=== PATIENT | female | born 1995 | race Caucasian/White ===

== ENCOUNTER → 2017-08-07 21:03 | Outpatient (CLI) | payer BC, SELFPAY | PROVIDERS: Visit Provider Physician Assistant Surgical | DX: J02.9 Acute pharyngitis, unspecified (principal) | CPT/HCPCS: 87081 ==

== ENCOUNTER 2018-11-13 19:15 | Emergency (ER) | payer BC, SELFPAY ==
[2018-07-13 16:52] VITALS: BMI 23.7
[2018-11-13 19:15] VITALS: BP 107/62; PULSE 78; RESP 15; TEMP 36.8; BMI 24.7
--- NOTE | 2018-11-13 20:26 | CT_ITS ---
HISTORY: UMBILICAL PAIN WITH PREV REPAIR ADDITIONAL HISTORY: None provided. TECHNIQUE: CT images were obtained of the abdomen and pelvis with 100 ml of Isovue 300 IV contrast. Enteric contrast was given. A radiation dose optimization technique was used for this scan. Number of images including paperwork: [id number] COMPARISON: None FINDINGS: LOWER THORAX: No consolidation or pleural effusion. LIVER: No concerning focal lesion. GALLBLADDER: No radiopaque calculi. BILE DUCTS: No significant biliary dilatation. SPLEEN: Unremarkable. PANCREAS: Unremarkable. ADRENAL GLANDS: Unremarkable. KIDNEYS/URETERS: Unremarkable. BOWEL: No bowel obstruction. No significant bowel wall thickening. No localized inflammation. APPENDIX: Normal. FREE FLUID: No significant free fluid. FREE AIR: None. LYMPH NODES: No pathologic appearing adenopathy. PERITONEUM, RETROPERITONEUM AND MESENTERY: Otherwise unremarkable. VASCULATURE: Unremarkable as imaged. PELVIS: Unremarkable bladder. ABDOMINAL WALL: Unremarkable. OSSEOUS AND SOFT TISSUE STRUCTURES: No acute skeletal findings. CT/Abdomen/Pelvis WITH Contrast IMPRESSION: No acute abdominopelvic abnormality. Individualized dose optimization techniques were used for this CT. at 2229 Reported and signed by: Merline Ham MD Electronically Signed: Merline Ham MD at 22:29 EDT Tel , Service support ,
--- NOTE | 2018-11-13 20:26 | ED.VISSUMM ---
- ER Visit Summary Date of Service: 11/13/18 Chief Complaint: Abdominal pain History of Present Illness: The patient is a 22 F presenting with abdominal pain. This has been intermittent for the past 2 days. She has pain in the mid abdomen and right lower quadrant. She has a history of previous umbilical hernia repair 2015 in [place]. She has nausea with no vomiting. She has had mild constipation. She denies fever. Denies urinary complaints. She is unsure if she could be . Denies other complaints. Physical Examination: Vitals are stable. Patient is afebrile. Alert no acute distress. HEENT exam is unremarkable. Neck is supple. Lungs are clear and equal bilaterally. Heart is regular rate and rhythm. Abdomen is soft mild right lower quadrant tenderness with no rebound or guarding Extremities are unremarkable. Skin is warm and dry. No focal neurologic deficit. Remainder of exam is unremarkable. Emergency Department Course and Treatment: CBC, chemistries unremarkable. Urinalysis shows 0-5 white blood cells, 0 red cells, 5-[address] hCG negative. CT abdomen pelvis shows no acute abdominopelvic abnormality. On reevaluation, patient is resting comfortably. Advised to follow-up with Dr. Santa labor relations manager for no doc. Advised return to ED if worsening complaints. Disposition: Discharge home Impression: Abdominal pain This note was generated with [employer] dictation software. It may contain incorrect words, spelling, and punctuation that were not noted in review of the chart prior to signing ED Disposition - Plan for ED Patient: Instructions: ED Abdominal Pain Unkn Cause Referrals: Iglesia Santa III, MD [STAFF PHYSICIAN] -
[2018-11-13 20:48] LABS: Red Blood Cells-Urine 0 SEEN /hpf (0-5)
[2018-11-13 20:53] LABS: Absolute Lymphocyte Count 2.67 X10^3/ul (0.83-4.51); Absolute Neutrophil Count 4.2 X10^3/uL (2.0-7.7); Basophil# 0.04 X10^3/uL; Basophil% 0.5 % (0-1); Eosinophil# 0.14 X10^3/uL; Eosinophils% 1.7 % (0-5); Hematocrit 42.8 % (37-47); Hemoglobin 14.8 g/dl (12.0-15.0); Lymphocyte # 2.67 X10^3/ul (4.0); Lymphocyte % 32.4 % (19-41); Mean Corp Hgb Conc 34.6 g/gl (32-36); Mean Corpuscular Hgb 30.9 pg (27.0-32.0); Mean Corpuscular Volume 89.4 fL (81-99); Mean Platelet Vol. 9.3 fl (6.2-12.0); Monocyte# 1.15 X10^3/uL; Neutrophil # 4.22 X10^3/uL (2.7-7.7); Neutrophil % 51.3 % (47-70); Platelet Count 288 K/mm3 (150-450); RBC Distribution Width CV 12.4 % (11.6-14.6); RBC Distribution Width SD 39.9 fl (35.1-43.9); Red Blood Count 4.79 M/mm3 (4.2-5.4); White Blood Count 8.2 K/mm3 (4.4-11.0)
[2018-11-13 20:54] LABS: Color, Urine Yellow (Yellow); Glucose, Dipstick Normal (Normal); Ketone-Dipstick 5 mg/dl (Negative); Leukocyte Esterase-Dipstick 100 /ul (Negative); Nitrite-Dipstick Negative (Negative); Occult Blood-Urine 10 /ul (Negative); Protein-Dipstick 15 mg/dl (Negative); Specific Gravity, Urine 1.025 (1.002-1.030); Urine Bilirubin Dipstick Negative (Negative); Urine Clarity Clear (Clear); Urine Urobilinogen 1 mg/dl (Normal)
[2018-11-13 20:59] LABS: POSITIVE COUNT NO; POSITIVE DIFFERENTIAL NO; POSITIVE MORPHOLOGY NO
[2018-11-13 21:03] LABS: Squamous Epithelial Cells - UA 5-10 SEEN /hpf (5-10); White Blood Cells 0-5 SEEN /hpf (0-5)
[2018-11-13 21:04] LABS: Bacteria 1+ /hpf (None Seen); Calcium Oxalate Crystals Ur 3+ /hpf (<or=2+); Internal QC Validated? YES +Cl - CLEAR BKGD; Mucous, Urine 3+ /hpf (<or=2+); Pregnancy, Serum, hCG Quali. NEGATIVE Negative
[2018-11-13 21:05] LABS: Anion Gap 2 (5-15); BUN 13 mg/dL (7-18); Calcium,Total 9.4 mg/dL (8.5-10.1); Chloride 109 mmol/L (98-107); Creatinine, Serum 0.82 mg/dL (0.55-1.02); EST Glomerular Filtration Rate 91 mL/min (>60); Est Glom Filt Rate - Afr Amer 110 mL/min (>60); Estimated Creatinine Clearance 102.88 ml/min; Glucose 82 mg/dL (74-106); Potassium 3.5 mmol/L (3.5-5.1); Sodium Level 139 mmol/L (136-145)
[2018-11-13 22:27] VITALS: BP 113/59; PULSE 60; RESP 15; O2SAT 99
--- NOTE | 2018-11-13 23:14 | ED.DEP ---
ED Disposition - Plan for ED Patient: Instructions: ED Abdominal Pain Unkn Cause Referrals: Iglesia Santa III, MD [STAFF PHYSICIAN] -
[2018-11-13 23:41] VITALS: BP 101/59; PULSE 67; RESP 16; O2SAT 98
== END 2018-11-13 23:42 | disposition home or self-care (01) ==
PROVIDERS: Emergency Provider Emergency Medicine
DX: R10.31 Right lower quadrant pain (principal); Z72.0 Tobacco use
CPT/HCPCS: 74177; 80048; 81001; 84703; 85025; 99283; Q9967; A4216

== ENCOUNTER 2020-04-10 11:03 | Emergency (ER) | payer SELFPAY ==
[2019-06-19 17:02] VITALS: BMI 24.7
[2020-04-10 11:04] VITALS: BP 118/72; PULSE 74; RESP 16; TEMP 36.5; O2SAT 98; BMI 27.3
[2020-04-10 11:48] VITALS: BP 122/69
--- NOTE | 2020-04-10 12:08 | US_ITS ---
STUDY: ABDOMINAL ULTRASOUND - RIGHT UPPER QUADRANT REASON FOR VISIT: Female, 24 years old RUQ PAIN and amp; NAUSEA x 1 WEEK, VOMITING TODAY TECHNIQUE: Ultrasound evaluation of the right upper quadrant was performed with real-time and static blake-scale imaging. TECHNICAL QUALITY: Adequate. COMPARISON: None. FINDINGS: Liver: The liver measures 15.6 cm. There is normal echogenicity of the liver. The bile ducts are within normal limits. There is hepatic color flow. The direction of portal flow is hepatopetal. There is no demonstrated mass lesion. Gallbladder: Normal distended gallbladder. The gallbladder wall measures 2.8 mm. There is a negative sonographic Roblero''s sign. There is no pericholecystic fluid. There are no gallstones. Common Bile Duct (C.B.D.): The common bile duct measures 3.0 mm. Pancreas: Normal size of the head, body and tail of the pancreas. There is normal echogenicity of the pancreas. There is no demonstrated pancreatic mass or cyst. Right Kidney: Normal size of the right kidney. The right kidney measures 10.2 cm x 4.3 cm x 4.2 cm. Normal renal cortex. The right cortex measures 1.0 cm. There is no demonstrated renal mass or cyst. There is no right hydronephrosis. US/Gallbladder IMPRESSION: Normal right upper quadrant ultrasound examination. Electronically Signed: Elio Song, at 12:45 EST , Service support ,
[2020-04-10 12:23] LABS: Absolute Lymphocyte Count 1.17 X10^3/uL (0.83-4.51); Absolute Neutrophil Count 9.7 X10^3/uL (2.0-7.7); Basophil# 0.06 X10^3/uL; Basophil% 0.5 % (0-1); Eosinophil# 0.02 X10^3/uL; Eosinophils% 0.2 % (0-5); Hematocrit 45.7 % (37-47); Hemoglobin 15.7 g/dL (12.0-15.0); Lymphocyte # 1.17 X10^3/ul (4.0); Lymphocyte % 10.3 % (19-41); Mean Corp Hgb Conc 34.4 g/dL (32-36); Mean Corpuscular Volume 93.1 fL (81-99); Mean Platelet Vol. 9.5 fl (6.2-12.0); Monocyte# 0.46 X10^3/uL; NRBC Flagged by Analyzer 0 % (0-5); Neutrophil # 9.66 X10^3/uL (2.7-7.7); Neutrophil % 84.6 % (47-70); Platelet Count 365 K/mm3 (150-450); RBC Distribution Width SD 37.3 fl (35.1-43.9); Red Blood Count 4.91 M/mm3 (4.2-5.4); White Blood Count 11.4 K/mm3 (4.4-11.0)
[2020-04-10 12:35] LABS: ALB/GLOB Ratio 1.2 RATIO (0.9-2.4); AST(SGOT) 13 U/L (15-37); Alanine Aminotransfer ALT/SGPT 20 U/L (13-56); Albumin, Serum 4.3 g/dL (3.2-5.0); Alkaline Phosphatase 68 U/L (45-117); Anion Gap 4 (5-15); BUN 15 mg/dL (7-18); BUN/Creat Ratio 21.2 RATIO (10-20); Calcium,Total 9.3 mg/dL (8.5-10.1); Chloride 108 mmol/L (98-107); Creatinine, Serum 0.71 mg/dL (0.55-1.02); EST Glomerular Filtration Rate 106 mL/min (>60); Est Glom Filt Rate - Afr Amer 128 mL/min (>60); Estimated Creatinine Clearance 112.41 ml/min; Globulin 3.6 g/dL (2.2-4.2); Glucose 93 mg/dL (74-106); Lipase 84 U/L (73-393); Potassium 3.6 mmol/L (3.5-5.1); Protein, Total 7.9 g/dL (6.4-8.2); Sodium Level 140 mmol/L (136-145)
[2020-04-10 12:37] LABS: Internal QC Validated? YES +Cl - CLEAR BKGD; Pregnancy, Serum, hCG Quali. NEGATIVE Negative
--- NOTE | 2020-04-10 13:17 | ED.DCSUM_ITS ---
History of Present Illness Chief Complaint: Abd Pain Narrative: Patient presenting for evaluation secondary to abdominal pain nausea vomiting. Patient states that over the course of about the last week she has been dealing with persistent nausea but has not actually vomited. Patient states that within the last 24 hours however she developed vomiting. This is nonbloody and nonbilious and nonfeculent. Is not been associated with diarrhea. Stop and associate with any urinary symptoms. Patient does have a past history of a hernia repair, no other history of abdominal surgeries. She denies any sick contacts. No exacerbating relieving factors. Review of systems otherwise negative. Past Medical History - Allergies and Home Meds Allergies/Adverse Reactions: Allergies No Known Allergies Allergy (Verified 04/10/20 11:04) Primary Care Physician: Care Physician,No Primary [Primary Care Provider] - Prior records reviewed: Yes Past Medical History: None Surgical History: herniorrhaphy Lives: With Family Smoking Status: Current some day smoker Alcohol: None Drugs: None Review of Systems All systems negative except as indicated General: Denies: Chills, Fever, Sweats Eyes: Denies: Visual changes - bilaterally, Diplopia ENT: Denies: Rhinorrhea, Sore throat Cardiovascular: Denies: Chest pain, Palpitations Respiratory: Denies: Dyspnea, Cough, Dyspnea on exertion Gastrointestinal: Reports: Abdominal pain, Nausea, Vomiting Genitourinary: Denies: Dysuria, Hematuria, Frequency Musculoskeletal: Denies: Back pain, Extremity Pain Skin: Denies: Rash, Wounds Neurological: Denies: Headache, Weakness, Numbness Physical Exam Vital Signs/Narrative: Vital Signs Temp Pulse Resp BP Pulse Ox 04/10/20 11:48 122/69 H 04/10/20 11:04 97.7 F L 74 16 118/72 98 Inital Vital Signs reviewed: Yes General: Well nourished, Well developed, No Acute Distress, - - Well-appearing age-appropriate female laying comfortably in the bed no acute distress Head: Normocephalic, Atraumatic Eyes: Perrl, EOMI ENT: Moist mucous membranes, No rhinorrhea Neck: Supple, Nontender Cardiovascular: Regular rate, Regular rhythm, No murmurs Respiratory: No distress, CTA bilaterally, Chest nontender Abdomen: Soft, Nondistended, Normal bowel sounds, Tender - Minimal epigastric and right upper quadrant tenderness negative Roblero sign no guarding or rebound Back: Nontender, Normal Inspection Extremities: Nontender, No edema Skin: Normal color, No rash Neurological: Alert, Oriented x3, Cranial nerves II-XII grossly intact, Normal Strength, Normal Sensation Psychological: Normal affect, Normal Mood Diagnostic/Tx/Re-eval Clinical Impression(s) from Imaging Studies Gallbladder Ultrasound 04/10/20 12:08 IMPRESSION: Normal right upper quadrant ultrasound examination. Electronically Signed: Elio Song, at 12:45 EST , Service support , Laboratory Data 04/10/20 04/10/20 04/10/20 11:45 11:45 11:45 WBC 11.4 H RBC 4.91 Hgb 15.7 H Hct 45.7 MCV 93.1 MCH 32.0 MCHC 34.4 RDW Std Deviation 37.3 RDW Coeff of Carroll 11.0 L Plt Count 365 MPV 9.5 Immature Gran % (Auto) 0.400 Neut % (Auto) 84.6 H Lymph % (Auto) 10.3 L Ell[place] % (Auto) 4.0 Eos % (Auto) 0.2 Baso % (Auto) 0.5 Absolute Neuts (auto) 9.7 H Absolute Lymphs (auto) 1.17 Nucleated RBC % 0 Sodium 140 Potassium 3.6 Chloride 108 H Carbon Dioxide 28.0 Anion Gap 4 L BUN 15 Creatinine 0.71 Estim Creat Clear Calc 112.41 Est GFR (MDRD) Af Amer 128 Est GFR (MDRD) Non-Af 106 BUN/Creatinine Ratio 21.2 H Glucose 93 Calcium 9.3 Total Bilirubin 0.60 AST 13 L ALT 20 Alkaline Phosphatase 68 Total Protein 7.9 Albumin 4.3 Globulin 3.6 Albumin/Globulin Ratio 1.2 Lipase 84 Serum , Qual NEGATIVE - Medical Decision Making Patient presented secondary to abdominal pain nausea vomiting. Patient was given IV fluids and Zofran. Laboratory work-up is unremarkable other than mild leukocytosis of 11, no evidence of pancreatitis or electrolyte derangement or elevation of liver enzymes. Right upper quadrant ultrasound was performed and per radiology is negative for acute disease. At this point the patient likely has a GI illness, she does not have other signs of toxicity and no evidence of surgical abdominal pathology. I believe that she is stable and appropriate for discharge. She will be sent home with a course of Zofran. She was recommended conservative management measures and the patient was discharged in stable condition. ED Disposition - Plan for ED Patient: Disposition: Home or Assisted Living Diagnosis: Abdominal pain, Nausea and vomiting Instructions: ED Abdominal Pain Unkn Cause Fem, ED Vomiting and Diarrhea Nonspecific Adult Prescriptions: Ondansetron [Zofran Odt] 4 mg PO Q8H PRN PRN #10 tab PRN Reason: Nausea Prescription Printed Referrals: Sindy Gaona [NON-STAFF] - 1 Week if not improving
--- NOTE | 2020-04-10 13:30 | CM.ED ---
Social Work Consult: No PCP Informant: Self-Referral Met with patient in room. Introduced self and psychosocial rehabilitation counselor role. Patient agreeable to speak with this psychosocial rehabilitation counselor. This psychosocial rehabilitation counselor broached topic of PCP. Patient confirms to not have a PCP. Patient confirms to have [employer] as insurance. Patient reports plan to move to [place], [place] but still continue to work in [place], [place]. Patient open to this psychosocial rehabilitation counselor providing patient with list of local PCP's. This psychosocial rehabilitation counselor exploring any further needs for patient. Patient reports to have housing and transportation. Patient denies community concerns or mental health needs. Patient pleasant and engaged with this psychosocial rehabilitation counselor. Lourdes Hadley MSW, PRISCILAS
[2020-04-10] MEDS: 0.9% Normal Saline 1,000 ML 1000 ML IV (13:40)
[2020-04-10] MEDS: Ondansetron 4 MG/2 ML Vial IV (13:40)
[2020-04-10 15:01] VITALS: BP 109/46; PULSE 78; RESP 15; O2SAT 99
== END 2020-04-10 15:02 | disposition home or self-care (01) ==
PROVIDERS: Emergency Provider Emergency Medicine
DX: R10.13 Epigastric pain (principal); R10.11 Right upper quadrant pain; R11.2 Nausea with vomiting, unspecified
CPT/HCPCS: 76705; 80053; 83690; 84703; 85025; 96361; 96374; 99284; J7030; A4216; J2405

== ENCOUNTER 2021-12-12 19:51 | Emergency (ER) | payer BC, SELFPAY ==
[2021-12-12 19:52] VITALS: BP 131/64; PULSE 86; RESP 16; TEMP 36.9; O2SAT 100; BMI 27.8
--- NOTE | 2021-12-12 20:17 | EDS_ITS ---
HPI HPI - GI History of Present Illness Chief Complaint: Abd Pain Narrative Narrative: 25-year-old female G1, presenting at 16 weeks of with right- sided abdominal pain. She states it hurts in the right lower quadrant. Patient states that she has had some nausea during but this has not changed. She notes the pain started abruptly about 3 days ago. She states it is sharp in nature and a little bit achy. The first day it was more persistent and second day it became intermittent. Today it has been a little bit more persistent. She has not taken any Tylenol. Patient denies constipation or diarrhea. She denies urinary complaints. She not had any vaginal bleeding or loss of fluid vaginally. She states she had a confirmed intrauterine by Dr. Malik. She states she has had blood work done noted that she is Rh-. She does not know what her hCG levels were. PFSH [facility] Medical History Cellulitis of both lower extremities Migraines Allergy/AdvReac Type Severity Reaction Status Date / Time No Known Allergies Allergy Verified 12/12/21 19:54 Family History Other Diabetes Heart disease Surgical History History of hernia repair Social History Smoking Status: Current some day smoker tobacco type: cigarettes alcohol intake: current alcohol intake frequency: holidays/special occasions only ROS ROS ED Constitutional Constitutional ED: Denies chills or fever(s) ENT ENT ED: Denies rhinorrhea or sore throat Cardiovascular Cardiovascular: Denies chest pain or palpitations Respiratory/Chest Respiratory/Chest: Denies cough or dyspnea Gastrointestinal Gastrointestinal: Reports abdominal pain and nausea; Denies constipation, diarrhea or vomiting Genitourinary Genitourinary ED: Denies dysuria or hematuria Musculoskeletal Musculoskeletal: Denies arthralgias or back pain Integumentary Denies abscess or Abrasions Neurologic Neurologic: Denies headache(s) Psychiatric Psychiatric: Denies anxiety or depression Endocrine Endocrinology: Denies polydipsia or polyphagia EXAM Physical Exam Const Vital Signs: 12/12/21 19:52 Temperature 98.5 F Temperature Source Temporal Pulse Rate 86 Respiratory Rate 16 Blood Pressure 131/64 H Blood Pressure Mean 86 Pulse Ox 100 Oxygen Delivery Method Room Air Positive well nourished and well developed General Appearance ED: well developed and NAD; Negative for pallor HEENT Reports moist mucous membranes normocephalic and atraumatic Eyes PERRL and EOMs intact bilaterally Resp normal respiratory effort and clear to auscultation bilaterally Cardio regular rate and regular rhythm GI Palpation: tender RLQ Back/Spine no CVA tenderness Neuro CN's II-XII intact bilaterally, moves all extremities and no sensory deficits noted Sensorium / Orientation: alert Psych mental status grossly normal and thought process normal Skin General Skin Exam: Negative for jaundice or pallor MDM MDM MDM Narrative Medical decision making narrative: Patient seen and evaluated for right lower quadrant pain. Does not appear to be McBurney's point tenderness and is more pelvic. No CVA tenderness. Blood work is obtained and she has a slight white count of 11.9 however her last blood work showed a white blood cell count of 11.5 and this is not significantly elevated after 3 days of pain. Renal function is normal. Potassium slightly low at 3.4. LFTs within normal limits. hCG is 19,266. Urinalysis is negative for infection. Obstetric ultrasound is ordered and shows no acute abnormalities and shows normal heart tones. There is no noted abnormalities in the right lower quadrant. Patient was given Tylenol for pain. She refused anything for nausea. I do not feel she has appendicitis at this point but I did enrollment counselor her on return precautions. She should follow-up with her senior contracts manager otherwise. Patient discharged in stable condition. Impression: 1. Abdominal pain in Lab Data Labs: Laboratory Results - last 24 hr 12/12/21 12/12/21 12/12/21 20:05 20:05 20:05 WBC 11.9 H RBC 4.04 L Hgb 12.6 Hct 35.7 L MCV 88.4 MCH 31.2 MCHC 35.3 RDW Std Deviation 37.5 RDW Coeff of Carroll 11.7 Plt Count 269 MPV 9.5 Immature Gran % (Auto) 0.400 Neut % (Auto) 67.3 Lymph % (Auto) 22.3 Lucas % (Auto) 8.4 Eos % (Auto) 1.2 Baso % (Auto) 0.4 Absolute Neuts (auto) 8.0 H Absolute Lymphs (auto) 2.66 Nucleated RBC % 0 Sodium 138 Potassium 3.4 L Chloride 106 Carbon Dioxide 26.0 Anion Gap 6 BUN 10 Creatinine 0.46 L Estim Creat Clear Calc 178.64 Est GFR (MDRD) Af Amer 211 Est GFR (MDRD) Non-Af 174 BUN/Creatinine Ratio 22.0 H Glucose 101 Calcium 8.9 Total Bilirubin 0.20 AST 11 L ALT 19 Alkaline Phosphatase 45 Total Protein 6.6 Albumin 3.4 Globulin 3.2 Albumin/Globulin Ratio 1.1 HCG, Quant 11111 H Urine Color Urine Clarity Urine pH Ur Specific Mcneil Urine Protein Urine Glucose (UA) Urine Ketones Urine Occult Blood Urine Nitrite Urine Bilirubin Urine Urobilinogen Ur Leukocyte Esterase Urine RBC Urine WBC Ur Squamous Epith Cells Urine Bacteria Urine Mucus 12/12/21 20:05 WBC RBC Hgb Hct MCV MCH MCHC RDW Std Deviation RDW Coeff of Carroll Plt Count MPV Immature Gran % (Auto) Neut % (Auto) Lymph % (Auto) Lucas % (Auto) Eos % (Auto) Baso % (Auto) Absolute Neuts (auto) Absolute Lymphs (auto) Nucleated RBC % Sodium Potassium Chloride Carbon Dioxide Anion Gap BUN Creatinine Estim Creat Clear Calc Est GFR (MDRD) Af Amer Est GFR (MDRD) Non-Af BUN/Creatinine Ratio Glucose Calcium Total Bilirubin AST ALT Alkaline Phosphatase Total Protein Albumin Globulin Albumin/Globulin Ratio HCG, Quant Urine Color Yellow Urine Clarity Sl. Cloudy Urine pH 7.0 Ur Specific Mcneil 1.010 Urine Protein Negative Urine Glucose (UA) Normal Urine Ketones Negative Urine Occult Blood Negative Urine Nitrite Negative Urine Bilirubin Negative Urine Urobilinogen Normal Ur Leukocyte Esterase Negative Urine RBC 0 SEEN Urine WBC 0 SEEN Ur Squamous Epith Cells 0 SEEN Urine Bacteria 0 SEEN Urine Mucus 0 SEEN Radiography Diagnostic Testing: Clinical Impression(s) from Imaging Studies Obstetrics Ultrasound 12/12/21 20:17 IMPRESSION: Single live early IUP as above. No concerning findings in the region of the right lower quadrant. Electronically Signed: Chadwick Coulter DO at 21:52 EDT , Discharge Plan Triage Chief Complaint: Abd Pain ED Provider: Mark Khan Dx/Rx/DC Orders Instructions: Comfort Tips During , ED Abdominal Pain, Early Primary Care Provider: Care Physician,No Primary Referrals: Care Physician,No Primary [Primary Care Provider] - Disposition Disposition: Home, Self Care
--- NOTE | 2021-12-12 20:17 | US_ITS ---
STUDY: SECOND AND THIRD TRIMESTER OBSTETRICAL ULTRASOUND - LIMITED REASON FOR EXAM: Female, 25 years old abdominal pain right lower quadrant pain x3 days LMP: Unknown. PRIOR ULTRASOUND: None. TECHNIQUE: Transabdominal TECHNICAL QUALITY: Adequate. FINDINGS: Cephalic presentation with heart rate of 152 bpm. PARTH is within normal limits. Cervix measures 3.5 cm and appears closed. Roughly 15 weeks 6 days gestational age. No definitive abnormalities in the right lower quadrant region. Normal appearance of the right ovary with normal blood flow, nonvisualized left ovary US/OB Limited (No Biometrics) IMPRESSION: Single live early IUP as above. No concerning findings in the region of the right lower quadrant. Electronically Signed: Chadwick Coulter DO at 21:52 EDT ,
[2021-12-12 20:20] LABS: Bacteria 0 SEEN /hpf (None Seen); Mucous, Urine 0 SEEN /hpf (<or=2+); Red Blood Cells-Urine 0 SEEN /hpf (0-5); Squamous Epithelial Cells - UA 0 SEEN /hpf (5-10); White Blood Cells 0 SEEN /hpf (0-5)
[2021-12-12 20:23] LABS: Absolute Lymphocyte Count 2.66 X10^3/uL (0.83-4.51); Basophil# 0.05 X10^3/uL; Basophil% 0.4 % (0-1); Color, Urine Yellow (Yellow); Eosinophil# 0.14 X10^3/uL; Eosinophils% 1.2 % (0-5); Glucose, Dipstick Normal (Normal); Hematocrit 35.7 % (37-47); Hemoglobin 12.6 g/dL (12.0-15.0); Ketone-Dipstick Negative (Negative); Leukocyte Esterase-Dipstick Negative /ul (Negative); Lymphocyte # 2.66 X10^3/ul (0.83-4.51); Lymphocyte % 22.3 % (19-41); Mean Corp Hgb Conc 35.3 g/dL (32-36); Mean Corpuscular Hgb 31.2 pg (27.0-32.0); Mean Corpuscular Volume 88.4 fL (81-99); Mean Platelet Vol. 9.5 fl (6.2-12.0); Monocyte% 8.4 % (0-10); NRBC Flagged by Analyzer 0 % (0-5); Neutrophil # 8.02 X10^3/uL (2.7-7.7); Neutrophil % 67.3 % (47-70); Nitrite-Dipstick Negative (Negative); Occult Blood-Urine Negative /ul (Negative); Platelet Count 269 K/mm3 (150-450); Protein-Dipstick Negative (Negative); RBC Distribution Width CV 11.7 % (11.6-14.6); RBC Distribution Width SD 37.5 fl (35.1-43.9); Red Blood Count 4.04 M/mm3 (4.2-5.4); Urine Bilirubin Dipstick Negative (Negative); Urine Clarity Sl. Cloudy (Clear); Urine Urobilinogen Normal (Normal); White Blood Count 11.9 K/mm3 (4.4-11.0)
[2021-12-12 20:39] LABS: ALB/GLOB Ratio 1.1 RATIO (0.9-2.4); AST(SGOT) 11 U/L (15-37); Alanine Aminotransfer ALT/SGPT 19 U/L (13-56); Albumin, Serum 3.4 g/dL (3.2-5.0); Alkaline Phosphatase 45 U/L (45-117); Anion Gap 6 (5-15); BUN 10 mg/dL (7-18); Calcium,Total 8.9 mg/dL (8.5-10.1); Chloride 106 mmol/L (98-107); Creatinine, Serum 0.46 mg/dL (0.55-1.02); EST Glomerular Filtration Rate 174 mL/min (>60); Est Glom Filt Rate - Afr Amer 211 mL/min (>60); Estimated Creatinine Clearance 178.64 ml/min; Globulin 3.2 g/dL (2.2-4.2); Glucose 101 mg/dL (74-106); Potassium 3.4 mmol/L (3.5-5.1); Protein, Total 6.6 g/dL (6.4-8.2); Sodium Level 138 mmol/L (136-145)
[2021-12-12] MEDS: Acetaminophen 500 MG Tablet 1000 MG PO (20:54)
[2021-12-12 20:55] LABS: hCG Titer Quant., Serum 19266 mIU/mL (1-3)
[2021-12-12 23:21] VITALS: BP 105/88; PULSE 72; RESP 16; O2SAT 98
== END 2021-12-12 23:22 | disposition home or self-care (01) ==
PROVIDERS: Emergency Provider Student in an Organized Health Care Education/Training Program; Visit Provider Student in an Organized Health Care Education/Training Program
DX: O99.891 Other specified diseases and conditions complicating pregnancy (principal); R10.31 Right lower quadrant pain; R11.0 Nausea; O99.332 Smoking (tobacco) complicating pregnancy, second trimester; F17.210 Nicotine dependence, cigarettes, uncomplicated; Z3A.16 16 weeks gestation of pregnancy
CPT/HCPCS: 76815; 80053; 81001; 84702; 85025; 99284; A4216

== ENCOUNTER 2022-05-24 13:40 | Inpatient (IN) | payer BC, SELFPAY ==
[2022-05-24] VITALS (37 sets, daily range): BP systolic 104–148; BP diastolic 50–70; PULSE 70–127; TEMP 36.4–37.9; O2SAT 98–100; BMI 30.8
[2022-05-24] MEDS: Lactated Ringers 1,000 ML 50 ML IV (14:00)
[2022-05-24 14:15] LABS: Absolute Lymphocyte Count 1.59 X10^3/uL (0.83-4.51); Absolute Neutrophil Count 13.5 X10^3/uL (2.0-7.7); Basophil# 0.05 X10^3/uL; Basophil% 0.3 % (0-1); Eosinophil# 0.07 X10^3/uL; Eosinophils% 0.4 % (0-5); Hematocrit 38.1 % (37-47); Hemoglobin 13.8 g/dL (12.0-15.0); Lymphocyte # 1.59 X10^3/ul (0.83-4.51); Lymphocyte % 9.6 % (19-41); Mean Corp Hgb Conc 36.2 g/dL (32-36); Mean Corpuscular Hgb 31.7 pg (27.0-32.0); Mean Corpuscular Volume 87.4 fL (81-99); Mean Platelet Vol. 9.4 fl (6.2-12.0); Monocyte% 7.3 % (0-10); NRBC Flagged by Analyzer 0 % (0-5); Neutrophil # 13.52 X10^3/uL (2.7-7.7); Neutrophil % 81.9 % (47-70); Platelet Count 241 K/mm3 (150-450); RBC Distribution Width CV 12.5 % (11.6-14.6); RBC Distribution Width SD 39.7 fl (35.1-43.9); Red Blood Count 4.36 M/mm3 (4.2-5.4); White Blood Count 16.5 K/mm3 (4.4-11.0)
[2022-05-24 14:45] LABS: Bedside Glucose 129 mg/dL (74-106)
[2022-05-24] MEDS: LACTATED RINGERS 500 ML 999 ML IV ×2 (16:17→20:49)
[2022-05-24 16:30] LABS: Bedside Glucose 68 mg/dL (74-106)
[2022-05-24] MEDS: fentaNYL-bupivacaine (epidural) 100 ML BAG EPIDURAL (16:55)
[2022-05-24 17:20] LABS: Rubella IgG Reactive (Nonreactive)
[2022-05-24] MEDS: Oxytocin 15 Units/NS 250ml 15 UNITS/250 ML IV.SOLN 2 UNITS IV (19:01)
--- NOTE | 2022-05-24 19:03 | PCM.HP.OB ---
HPI - General General Date of Admission: 05/24/22 Date of Service: 05/24/22 HPI Narrative AIDAN JAUREGUI, is a 26 F who presents at at 39w1d by first trimester US. Scheduled for elective IOL this evening but presented in early labor with contractions and increased pain. course complicated with GDMA1. Maternal Data Information Final CHERELLE: 05/30/22 Final CHERELLE Source: US <20 weeks Gestational age: 39w1d PFSH PFSH Medical History (Updated 05/24/22 @ 19:12 by Gaby Richards CNM) Acute pharyngitis, unspecified Cellulitis of both lower extremities Former smoker Gestational diabetes Migraines URI (upper respiratory infection) Home Medications [id number] 1 mg tablet 1 tab PO DAILY Check with primary doctor 05/24/22 [History Last Taken 05/23/22 20:00] Allergy/AdvReac Type Severity Reaction Status Date / Time No Known Allergies Allergy Verified 05/24/22 14:53 Family History Other Diabetes Heart disease Surgical History (Updated 05/24/22 @ 14:53 by Delia Brar) History of hernia repair Social History Smoking Status: Former smoker alcohol intake: current alcohol intake frequency: holidays/special occasions only History Elective abortions Hx Para 0 Spontaneous abortions Hx # Term Pregnancies Ectopic pregnancies Hx # Pregnancies Multiple births # of living children NST FHR Rate Baby A Baseline: 125 Variability:: Moderate Accelerations:: 15 x 15 Decelerations:: None FHR Category:: Category I Uterine Activity:: strong, every 2 min ROS Constitutional Constitutional: Reports systems reviewed and no addt'l complaints, except as documented; Denies headache(s) Eyes Eyes: Denies acute decrease in peripheral vision, blurry vision or change in vision ENT HEENT: Reports systems reviewed and no addt'l complaints, except as documented Cardiovascular Cardiovascular: Denies chest pain or dizziness Respiratory/Chest Respiratory/Chest: Denies cough, dyspnea, dyspnea on exertion, shortness of breath at rest or shortness of breath with exertion Gastrointestinal Gastrointestinal: Denies abdominal pain, diarrhea, nausea or vomiting Genitourinary Genitourinary: Reports movement; Denies abdominal discomfort Musculoskeletal Musculoskeletal: Denies limited range of motion Integumentary Integumentary: Reports systems reviewed and no addt'l complaints, except as documented Neurologic Neurologic: Reports systems reviewed and no addt'l complaints, except as documented Psychiatric Psychiatric: Reports systems reviewed and no addt'l complaints, except as documented Endocrine Endocrinology: Reports systems reviewed and no addt'l complaints, except as documented Hematologic/Lymphatic Hematologic/Lymphatic: Reports systems reviewed and no addt'l complaints, except as documented Allergic/Immunologic Allergic/Immunologic: Reports systems reviewed and no addt'l complaints, except as documented Vital Signs Vital Signs Vital Signs: 05/24/22 14:29 05/24/22 14:29 05/24/22 14:29 Temperature 99.3 F H Temperature Source Pulse Rate 87 Blood Pressure 110/56 L BP Systolic 110 BP Diastolic 56 Pulse Ox 05/24/22 16:26 05/24/22 16:26 05/24/22 16:25 Temperature 99.5 F H Temperature Source Pulse Rate 78 Blood Pressure 124/65 H BP Systolic 124 BP Diastolic 65 Pulse Ox 05/24/22 16:37 05/24/22 16:37 05/24/22 16:37 Temperature Temperature Source Pulse Rate 80 88 Blood Pressure 123/68 H BP Systolic 123 BP Diastolic 68 Pulse Ox 05/24/22 16:37 05/24/22 16:42 05/24/22 16:42 Temperature Temperature Source Pulse Rate 93 Blood Pressure 128/70 H BP Systolic 128 BP Diastolic 70 Pulse Ox 100 05/24/22 16:42 05/24/22 16:48 05/24/22 16:48 Temperature Temperature Source Pulse Rate 96 Blood Pressure 123/66 H BP Systolic 123 BP Diastolic 66 Pulse Ox 100 05/24/22 16:47 05/24/22 16:52 05/24/22 16:52 Temperature Temperature Source Pulse Rate 91 Blood Pressure BP Systolic BP Diastolic Pulse Ox 99 100 05/24/22 16:53 05/24/22 16:53 05/24/22 16:56 Temperature Temperature Source Pulse Rate 85 Blood Pressure 117/60 117/59 L BP Systolic 117 117 BP Diastolic 60 59 Pulse Ox 05/24/22 16:56 05/24/22 16:57 05/24/22 16:57 Temperature Temperature Source Pulse Rate 90 98 Blood Pressure BP Systolic BP Diastolic Pulse Ox 100 05/24/22 17:02 05/24/22 17:02 05/24/22 17:02 Temperature Temperature Source Pulse Rate 87 Blood Pressure 130/63 H BP Systolic 130 BP Diastolic 63 Pulse Ox 100 05/24/22 16:26 05/24/22 17:07 05/24/22 17:07 Temperature Temperature Source Temporal Pulse Rate 82 Blood Pressure BP Systolic BP Diastolic Pulse Ox 99 05/24/22 16:26 05/24/22 17:08 05/24/22 17:08 Temperature 99.6 F H Temperature Source Pulse Rate 85 Blood Pressure 125/65 H BP Systolic 125 BP Diastolic 65 Pulse Ox 05/24/22 17:11 05/24/22 17:11 05/24/22 17:12 Temperature Temperature Source Pulse Rate 81 Blood Pressure 126/63 H 120/59 L BP Systolic 126 120 BP Diastolic 63 59 Pulse Ox 05/24/22 17:12 05/24/22 17:43 05/24/22 17:43 Temperature Temperature Source Pulse Rate 82 72 Blood Pressure 114/56 L BP Systolic 114 BP Diastolic 56 Pulse Ox 05/24/22 17:43 05/24/22 17:43 05/24/22 17:43 Temperature 99.0 F Temperature Source Temporal Pulse Rate Blood Pressure BP Systolic BP Diastolic Pulse Ox 100 05/24/22 16:26 05/24/22 16:26 Temperature 99.4 F H Temperature Source Temporal Pulse Rate Blood Pressure BP Systolic BP Diastolic Pulse Ox Weight Weight: 196 lb 10.437 oz Body Mass Index (BMI) 30.8 Physical Exam Const alert and oriented x3 General Appearance: cooperative Orientation / Consciousness: awake, oriented to person, oriented to place and oriented to time Exam Limitations: no limitations HEENT normocephalic Head and Scalp: normal to inspection, normocephalic and atraumatic Face and Sinus: normal facial exam Eyes General Eye: normal appearance of both eyes Neck full ROM Chest Chest: symmetrical chest wall rise Resp normal respiratory effort and normal air movement Auscultation: clear to auscultation bilaterally Cardio regular rate, regular rhythm, S1 normal heart sound, S2 normal heart sound, no murmurs, no rub, no gallops and no clicks GI normal to inspection, nondistended, normoactive bowel sounds and non-tender appearance of the vagina normal Bladder / Kidney Exam: no CVA tenderness Manual OB Exam: estimated gestational size appropriate, presentation cephalic and dilated 4cm per nursing staff Back/Spine normal ROM Extremity normal to inspection and full ROM Skin no rashes or lesions noted Neuro oriented x3, CN's II-XII intact bilaterally and moves all extremities Sensorium / Orientation: awake, alert and oriented to person Motor Exam: clonus absent Deep Tendon Reflexes: Rt Patellar (L4): 2+ and Lt Patellar (L4): 2+ Labs Labs Labs: Blood Type A NEGATIVE Antibody Screen NEGATIVE Hct 38.1 % (37-47) Hgb 13.8 g/dL (12.0-15.0) Obstetrics US Rubella IgG Antibody Reactive (Nonreactive) RPR negative HBsAG negative HepC negative HIV negative GC/CT negative A negative Rubella Immune Assessment & Plan (1) GDM, class A1: (2) Active labor at term: (3) Rh negative state in antepartum period: (4) Positive GBS test: PLAN: Plan 1) Admit to labor and delivery 2) Routine labs 3) Epidural for pain management 4) Continuous EFM 5) Pitocin for labor augmentation per protocol 6) collaborative physician and notified of patient status 7) Positive GBS, PCN per protocol
[2022-05-24] MEDS: Penicillin G 3,000,000 Units 50 ML 100 UNITS IV (19:59)
[2022-05-24] MEDS: Lactated Ringers 1,000 ML 200 ML IV (20:00)
[2022-05-24 20:56] LABS: Bedside Glucose 97 mg/dL (74-106)
[2022-05-24 22:05] LABS: Bedside Glucose 94 mg/dL (74-106)
[2022-05-24 22:50] LABS: Bedside Glucose 84 mg/dL (74-106)
--- NOTE | 2022-05-24 22:50 | PLAC_PTH ---
PATIENT: AIDAN JAUREGUI LOC: [facility] U#:[id number] AGE/SX: 26/F ROOM: [facility]015 RE05/24/[address]: Gaby Richards CNM : 1995 BED: 1 DIS: 05/26/2022 SPEC #: [id number] RECD: 05/25/22 03:06 STATUS: EDWIN DANIEL #: [id number] OZ: 05/24/22 22:[address]: Gaby Richards DEPT: SURGICAL PATHOLOGY RECD BY: Lindsey Hicks ENTERED: 05/25/22 08:53 SP TYPE: PLACENTA OTHR DR: No Primary Care Phys Tissues: Placenta, NOS Procedures: Surgery Specimen Level V HEADER OPERATION: Vaginal delivery PRE-OP DIAGNOSIS: Possible abruption TISSUE SUBMITTED: Placenta MICROSCOPIC DIAGNOSIS Placenta: Placental disc - third trimester placenta (406 gm). - Focal acute vasculitis of subamniotic blood vessels. Membranes ? mild acute chorioamnionitis. Umbilical cord - three blood vessels and minimal early acute funisitis. SJ:ivan 05/26/2022 MICROSCOPIC DESCRIPTION Slides are reviewed. GROSS DESCRIPTION SPECIMEN: PLACENTA / CLINICAL INFORMATION: A. Weight: 3.255 kg B. Gestational Age: 39 weeks C. Sex: Female PLACENTAL WEIGHT (POST FIXATION): 406 gm PLACENTAL DIMENSIONS: 18 x 18 x 2.5 cm PLACENTAL SHAPE: Usual ovoid PLACENTAL WEIGHT FOR GESTATIONAL AGE: Within 10-99th percentile MEMBRANES - Present A. Insertion: Marginal B. Site of rupture from edge: 5 cm from edge of placental disc C. Color of membrane: Cazares-blake D. Abnormalities: None UMBILICAL CORD - Present A. Color: Cazares-blake B. Insertion: Near central insertion C. Length: 37 cm D. Diameter: 1.5 cm E. Number of vessels: Three F. Abnormalities: None PLACENTAL DISC - Present A. Color of surface: Cazares-blake B. surface abnormalities: None C. Maternal cotyledons: Intact with minimal tears D. Attached retro placental clot: No clot E. Cut surface: Dark red and spongy F. Lesions: None G. Separate clot: Absent SECTIONS SUBMITTED: 1. Umbilical cord ( end notched) 2. Umbilical cord, placental end 3. Membrane roll 4. Placental disc, and maternal surfaces 5. Placental disc, and maternal surfaces 6. Placental disc, and maternal surfaces AM:ivan 05/25/2022 TC:2 CPT: 33784
[2022-05-24] MEDS: Methylergonovine 0.2 MG/ML Ampul IM (23:02)
[2022-05-24] MEDS: Oxytocin 15 Units/NS 250ml 15 UNITS/250 ML IV.SOLN 83 UNITS IV (23:13)
--- NOTE | 2022-05-24 23:16 | EX.PCM.OBRPT ---
Assessment & Plan (1) Vaginal delivery: (2) Second degree perineal laceration: Maternal Data Information Final CHERELLE: 05/24/22 Gestational age: 39w1d Vaginal Delivery Maternal Presentation Maternal Presentation: Active Labor Operative Information Date of Procedure: 05/24/22 Pre-Operative Diagnosis: Active Labor Post-Operative Diagnosis: Surgery / Procedure Performed: Spontaneous Vaginal Delivery Type of Anesthesia: Epidural Estimated Blood Loss: 700 ml Time of Delivery: 22:50 Findings Description of Procedure: Progressed to complete with urge to push. Suspected placental abruption due to bleeding and clots with Category 2 FHT. present on unit. Epidural for pain management. of viable female infant over 2nd degree perineum. APGARS 8,9 respectively. head delivered with body immediately forthcoming. Placed on maternal abdomen, strong cry. Mouth and nares suctioned for secretions. Pitocin started for active 3rd stage management. Cord doubly clamped and cut by FOB after pulsations ceased, delayed cord clamping. Placenta delivered intact via amanda, 3 vessel cord intact. Perineum inspected and revealed 2nd degree perineal laceration. Repaired with 3.0 vicryl rapide and epidural. Uterine atony and increased vaginal bleeding. Methergine given IM. Fundus firm and hemostasis achieved. 700 ml EBL. Placenta to pathology. Mom and baby stable, planning to breastfeed. Family bonding well. notified of delivery. Presentation: Vertex Amniotic Membrane Rupture Type: Spontaneous Amniotic Fluid Description: Clear Placental Delivery Description: Spontaneous Placenta Disposition: [facility] Cord Vessel Description: 3 Vessels Cord Entanglement: Around neck x 1, loose Nuchal Cord Compression: Without compression Infant A Gender: Female (1 minute): 8 (5 minute): 9 Delayed Cord Clamping: Yes Post Vaginal Delivery Medications Given After Delivery: IV Pitocin and IM Methergin Episiotomy Description: None Laceration: 2nd degree Complication Complications: - (Possible placental abruption, placenta sent to pathology)
[2022-05-25] VITALS (25 sets, daily range): BP systolic 90–118; BP diastolic 52–70; PULSE 78–110; RESP 15–18; TEMP 36.4–37.8; O2SAT 97–100
[2022-05-25 00:21] LABS: Bedside Glucose 92 mg/dL (74-106)
[2022-05-25] MEDS: 0.9% Saline Lock 10 ML Syringe IV (02:21)
[2022-05-25 03:36] LABS: Bedside Glucose 120 mg/dL (74-106)
[2022-05-25] MEDS: Acetaminophen 500 MG Tablet 1000 MG PO ×3 (04:18→21:54)
[2022-05-25] MEDS: Ibuprofen 600 MG Tablet PO ×2 (08:19→19:53)
[2022-05-25 08:31] LABS: Bedside Glucose 61 mg/dL (74-106)
[2022-05-25 08:31] LABS: Bedside Glucose 61 mg/dL (74-106)
--- NOTE | 2022-05-25 08:57 | PCM.PN.OB ---
Subjective Subjective Pain well controlled. Average lochia. Objective Data Objective Data Vital Signs: Vital Signs Temp Pulse Resp BP Pulse Ox O2 Del Method 98.4 F 86 16 92/55 L 97 Room Air 05/25/22 08:00 05/25/22 08:00 05/25/22 08:00 05/25/22 08:00 05/25/22 08:00 05/25/22 08:00 Oxygen Delivery Method Room Air Weight: 89.2 kg Body Mass Index (BMI) 30.8 Intake & Output: Intake and Output for Last 24 Hours 05/23/22 05/24/22 05/25/22 23:59 23:59 23:59 Intake Total 3625.84 / 3625.84 250 / 250 Output Total 1800 / 1800 1175 / 1175 Balance 1825.84 / 1825.84 -925 / -925 Lab / Micro Data Result Diagrams: 05/24/22 14:00 Labs: Laboratory Results - last 24 hr 05/24/22 14:00: WBC 16.5 H, RBC 4.36, Hgb 13.8, Hct 38.1, MCV 87.4, MCH 31.7, MCHC 36.2 H, RDW Std Deviation 39.7, RDW Coeff of Carroll 12.5, Plt Count 241, MPV 9.4, Immature Gran % (Auto) 0.500, Neut % (Auto) 81.9 H, Lymph % (Auto) 9.6 L, Turner % (Auto) 7.3, Eos % (Auto) 0.4, Baso % (Auto) 0.3, Absolute Neuts (auto) 13.5 H, Absolute Lymphs (auto) 1.59, Nucleated RBC % 0 05/24/22 14:00: Blood Type A NEGATIVE, Antibody Screen NEGATIVE 05/24/22 14:22: POC Glucose 129 H 05/24/22 16:02: POC Glucose 68 L 05/24/22 16:10: Rubella IgG Antibody Reactive 05/24/22 20:03: POC Glucose 61 L 05/24/22 20:18: POC Glucose 61 L 05/24/22 20:34: POC Glucose 97 05/24/22 21:43: POC Glucose 94 05/24/22 22:31: POC Glucose 84 05/24/22 23:55: POC Glucose 92 05/25/22 01:15: Screen NEGATIVE, Baby's Blood Type A POSITIVE, Baby's PATTI NEGATIVE 05/25/22 03:15: POC Glucose 120 H Physical Exam Const alert and no apparent distress Narrative: Fundus firm, below umbilicus. Assessment & Plan (1) Vaginal delivery: PLAN: day #1 status post vaginal delivery. Suspected abruption. Atony without hemorrhage. Recheck CBC today. Working on breast-feeding and is doing well. Likely discharge home tomorrow.
[2022-05-25 09:12] LABS: Absolute Lymphocyte Count 1.97 X10^3/uL (0.83-4.51); Absolute Neutrophil Count 17.5 X10^3/uL (2.0-7.7); Basophil# 0.05 X10^3/uL; Basophil% 0.2 % (0-1); Eosinophil# 0.02 X10^3/uL; Eosinophils% 0.1 % (0-5); Hematocrit 32.8 % (37-47); Hemoglobin 11.5 g/dL (12.0-15.0); Lymphocyte # 1.97 X10^3/ul (0.83-4.51); Mean Corp Hgb Conc 35.1 g/dL (32-36); Mean Corpuscular Hgb 30.9 pg (27.0-32.0); Mean Corpuscular Volume 88.2 fL (81-99); Mean Platelet Vol. 9.2 fl (6.2-12.0); Monocyte# 2.26 X10^3/uL; Monocyte% 10.3 % (0-10); NRBC Flagged by Analyzer 0 % (0-5); Neutrophil # 17.52 X10^3/uL (2.7-7.7); Neutrophil % 79.7 % (47-70); POSITIVE DIFFERENTIAL YES; Platelet Count 218 K/mm3 (150-450); RBC Distribution Width CV 12.4 % (11.6-14.6); RBC Distribution Width SD 40.3 fl (35.1-43.9); Red Blood Count 3.72 M/mm3 (4.2-5.4)
[2022-05-25 09:26] LABS: Differential Indicated SCAN CRITERIA MET
[2022-05-25 09:30] LABS: Bedside Glucose 98 mg/dL (74-106)
[2022-05-25 09:54] LABS: Differential Comment SCANNED
--- NOTE | 2022-05-25 10:38 | NURSING ---
Pt urinated 300ccs. This RN bladder scanned her for >352ccs. Called Dr Malik and she ordered a straight catheter x1.
[2022-05-26 01:53] VITALS: BP 103/53; PULSE 69
[2022-05-26] MEDS: Ibuprofen 600 MG Tablet PO ×2 (01:53→09:05)
[2022-05-26 01:57] VITALS: BP 103/53; PULSE 69; RESP 16; TEMP 36.9
--- NOTE | 2022-05-26 08:14 | PCM.PN.OB ---
Subjective Subjective Pt is doing well. She offers no complaints and desires discharge today. She is ambulating and voiding without difficulty. She denies chest pain, shortness of breath, leg pain. Lochia is normal. Pain is controlled. Denies lightheadedness and dizziness. Objective Data Objective Data Vital Signs: Vital Signs Temp Pulse Resp BP Pulse Ox O2 Del Method 98.4 F 69 16 103/53 L 97 Room Air 05/26/22 01:57 05/26/22 01:57 05/26/22 01:57 05/26/22 01:57 05/25/22 15:46 05/25/22 15:45 Oxygen Delivery Method Room Air Weight: 196 lb 10.437 oz Body Mass Index (BMI) 30.8 Intake & Output: Intake and Output for Last 24 Hours 05/24/22 05/25/22 05/26/22 23:59 23:59 23:59 Intake Total 3625.84 / 3625.84 250 / 250 Output Total 1800 / 1800 3025 / 3025 600 / 600 Balance 1825.84 / 1825.84 -2775 / -2775 -600 / -600 Lab / Micro Data Result Diagrams: 05/25/22 09:04 Labs: Laboratory Results - last 24 hr 05/24/22 20:03: POC Glucose 61 L 05/24/22 20:18: POC Glucose 61 L 05/25/22 09:04: WBC 22.0 H, RBC 3.72 L, Hgb 11.5 L, Hct 32.8 L, MCV 88.2, MCH 30.9, MCHC 35.1, RDW Std Deviation 40.3, RDW Coeff of Carroll 12.4, Plt Count 218, MPV 9.2, Immature Gran % (Auto) 0.700, Neut % (Auto) 79.7 H, Lymph % (Auto) 9.0 L, Izard % (Auto) 10.3 H, Eos % (Auto) 0.1, Baso % (Auto) 0.2, Absolute Neuts (auto) 17.5 H, Absolute Lymphs (auto) 1.97, Nucleated RBC % 0, Differential Comment SCANNED, Diff Path Review October05/25/22 09:08: POC Glucose 98 Physical Exam Const alert and no apparent distress General Appearance: comfortable GI soft to palpation, non-tender and non-distended Extremity normal to inspection and no calf tenderness Assessment & Plan (1) Vaginal delivery: PLAN: PPD#2 s/p vaginal delivery. Doing well and desires discharge today. Discharge instructions reviewed as well as follow up. (2) Second degree perineal laceration:
--- NOTE | 2022-05-26 08:16 | DCINST_ITS ---
Discharge Instructions Diet Discharge Diet: No restrictions Activity Discharge Activity: May Shower May resume sexual activity in: 6 weeks Ice area for (Minutes): 15 Weight Bearing Status: Weight bearing as tolerated Lifting Restrictions: Nothing heavier than baby Dressing / Incision Call your doctor if your incision/area has: Sudden Increased Bleeding, Increased Pain/ Swelling, Increased Redness, Foul Smelling Discharge and Swelling at the incision site Call your doctor if you observe: Fever of 101 or Higher, Coldness, Increased Pain, Numbness or Tingling, Change in Color, Inability to urinate, Inability to have a bowel movement, Using more than 1 pad per hour, Shortness of breath, Dizziness, Fainting spells, Swelling in the ankles, Chest pain, Increased palpitations (irregular heartbeat), Calf discomfort and Uncontrolled pain Cleanse incision/area with: Soap & Water Follow Up Care When: 1-2 weeks for early visit 6 weeks for visit Test Results: Test results from this visit will be discussed in further detail at your follow- up appointment, if applicable. Discharge Plan Admission Admit Date/Time: 05/24/22 13:40 Primary Reason for Your Visit: delivery Attending Provider: Gaby Richards Primary Care Provider: Raimundo Physician,Maribel Primary Instructions Patient Instructions: After a Vaginal Discharge Orders/Prescriptions Prescriptions: No Action 1 mg Tablet 1 tab PO DAILY Referrals / Follow Up: Care Physician,No Primary [Primary Care Provider] - Disposition Disposition (needs filled in before D/C Order can be placed): Home, Self Care
[2022-05-26 09:00] VITALS: BP 116/62; PULSE 87; RESP 18; TEMP 37
[2022-05-26 09:07] VITALS: BP 116/62; PULSE 87; TEMP 37
[2022-05-27 09:45] LABS: Pathologist Review Reviewed
[2022-05-31 07:58] LABS: Pathology Specimen OB SEE PATHOLOGY REPORT
== END 2022-05-26 13:00 | disposition home or self-care (01) | DRG 805 ==
PROVIDERS: Admitting Provider Advanced Practice Midwife; Visit Provider Advanced Practice Midwife
DX: O24.420 Gestational diabetes mellitus in childbirth, diet controlled (principal); Z37.0 Single live birth; O45.93 Premature separation of placenta, unspecified, third trimester; O75.89 Other specified complications of labor and delivery; O26.893 Other specified pregnancy related conditions, third trimester; O70.1 Second degree perineal laceration during delivery; O99.824 Streptococcus B carrier state complicating childbirth; O69.81X0 Labor and delivery complicated by cord around neck, without compression, not applicable or unspecified; Z67.11 Type A blood, Rh negative; Z3A.39 39 weeks gestation of pregnancy; Z87.891 Personal history of nicotine dependence; O42.92 Full-term premature rupture of membranes, unspecified as to length of time between rupture and onset of labor
CPT/HCPCS: 59025; 59050; 82962; 85025; 85461; 86762; 86850; 86900; 86901; 88307; 99218; 99406; J7120; A4216; G0378; J2790